=== PATIENT | male | born 1980 | race Caucasian/White ===

== ENCOUNTER 2023-05-12 08:09 | Emergency (ER) | payer SELFPAY ==
[~2023-05-12] VITALS: Ht 172.7 cm; Wt 87.0 kg
[2023-05-12 08:12] VITALS: TEMP 98; O2SAT 100
[2023-05-12 08:38] LABS: BASOPHILS % 1.1 % (0.0-2.0); EOSINOPHILS % 0.9 % (0.0-5.0); HEMATOCRIT. 45.3 % (42.0-52.0); HEMOGLOBIN. 15.5 g/dL (14.0-18.0); LYMPHOCYTES % 36.4 % (20.0-50.0); MEAN CORPUSCULAR HGB CONC 34.3 g/dL (31.0-37.0); MEAN CORPUSCULAR VOLUME 87.7 fL (80.0-94.0); MEAN PLATELET VOLUME 8.2 fl (7.4-10.4); MONOCYTES % 4.8 % (2.0-8.0); NEUTROPHILS % 56.8 % (40.0-76.0); PLATELET 308 x1000/uL (130-400); RED BLOOD CELL COUNT 5.17 mill/uL (4.7-6.1); WHITE BLOOD COUNT 5.2 x1000/uL (4.5-11.0)
[2023-05-12 09:01] LABS: D-DIMER 0.23 mg/L FEU (<0.50); PROTHROMBIN TIME 11.1 sec (9.6-11.0)
[2023-05-12 09:56] LABS: ALANINE AMINOTRANSFERASE 49 IU/L (10-49); ALBUMIN 4.6 g/dL (3.2-4.8); ASPARTATE AMINOTRANSFERASE 44 IU/L (<34); BILIRUBIN TOTAL 0.9 mg/dL (0.1-1.0); CALCIUM 8.8 mg/dL (8.7-10.4); CARBON DIOXIDE 22 mEq/L (21-32); CHLORIDE 106 mEq/L (98-107); CREATININE 0.9 mg/dL (0.6-1.3); ETHANOL BLOOD 105 mg/dL (<10); GLUCOSE 108 mg/dL (70-105); POTASSIUM 3.7 mEq/L (3.5-5.1); PROTEIN TOTAL 8.7 g/dL (6.0-8.3); SODIUM 140 mEq/L (136-145); TROPONIN I HIGH SENSITIVITY 45 ng/L (3.0-53); UREA NITROGEN BLOOD 16 mg/dL (9-23)
[2023-05-12 11:27] LABS: TROPONIN I HIGH SENSITIVITY 45 ng/L (3.0-53)
[2023-05-12] MEDS ORDERED: ONDA4TAB11 PO (12:48)
[2023-05-12] MEDS: KETOROLAC 30MG/ML VIAL IV ONE (13:05)
[2023-05-12 13:07] VITALS: BP 141/87; PULSE 88; RESP 15
== END 2023-05-12 13:09 | disposition home or self-care (01) ==
LOC: ER 08:09
DX: R11.2 Nausea with vomiting, unspecified (principal); R07.9 Chest pain, unspecified
CPT/HCPCS: 80053; 80320; 83880; 83690; 85025; 85379; 85610; 84484; 36415; 71045; 93005; 96374; 99285; J1885; Z7610 ×3; G0480

== ENCOUNTER 2024-04-02 09:35 | Emergency (ER) | payer MEDICAID, OTHER ==
[~2024-04-02] VITALS: Ht 152.4 cm; Wt 81.6 kg
[~2024-04-02 09:35] MED LIST: ONDA-239 PO
[2024-04-02 09:41] VITALS: O2SAT 98
[2024-04-02 10:29] LABS: BASOPHILS % 1.3 % (0.0-2.0); EOSINOPHILS % 1.5 % (0.0-5.0); HEMATOCRIT. 48.9 % (42.0-52.0); LYMPHOCYTES % 41.5 % (20.0-50.0); MEAN CORPUSCULAR HEMOGLOBIN 30.7 pg (28.0-32.0); MEAN CORPUSCULAR HGB CONC 34.8 g/dL (31.0-37.0); MEAN CORPUSCULAR VOLUME 88.1 fL (80.0-94.0); MEAN PLATELET VOLUME 9.1 fl (7.4-10.4); MONOCYTES % 5.8 % (2.0-8.0); NEUTROPHILS % 49.9 % (40.0-76.0); PLATELET 273 x1000/uL (130-400); RED BLOOD CELL COUNT 5.55 mill/uL (4.7-6.1); RED CELL DISTRIBUTION WIDTH 13.6 % (11.6-14.6); WHITE BLOOD COUNT 5.3 x1000/uL (4.5-11.0)
[2024-04-02 10:48] LABS: CHLORIDE 101 mEq/L (98-107); POTASSIUM 3.7 mEq/L (3.5-5.1); SODIUM 133 mEq/L (136-145)
[2024-04-02 10:49] LABS: CARBON DIOXIDE 19 mEq/L (21-32)
[2024-04-02 10:50] LABS: CALCIUM 8.8 mg/dL (8.7-10.4)
[2024-04-02 10:54] LABS: CREATININE 0.8 mg/dL (0.6-1.3); GLUCOSE 96 mg/dL (70-105)
[2024-04-02 10:55] LABS: UREA NITROGEN BLOOD 16 mg/dL (9-23)
[2024-04-02] MEDS: KETOROLAC 30MG/ML VIAL IM STA (12:41)
[2024-04-02] MEDS: ONDANSETRON HCL 4MG/2ML INJ IM STA (12:41)
[2024-04-02] MEDS: FOLIC ACID 1 MG, THIAMINE HCL 100 MG, MVI, ADULT NO.1 10 ML in DEXTROSE 5% WATER 1,000 ML IV ONE (12:42)
[2024-04-02 13:43] LABS: ETHANOL BLOOD 116 mg/dL (<10)
[2024-04-02 14:00] LABS: HEPATITIS B SURFACE ANTIGEN NEGATIVE (Negative)
[2024-04-02 14:02] LABS: TROPONIN I HIGH SENSITIVITY 57 ng/L (3.0-53)
[2024-04-02 14:20] LABS: HEPATITIS A AB IGM NEGATIVE (Negative)
[2024-04-02 14:21] LABS: HEPATITIS B CORE AB IGM NEGATIVE (Negative); HEPATITIS C AB NON REACTIVE (Neg) (Negative)
[2024-04-02 14:30] LABS: ALANINE AMINOTRANSFERASE 115 IU/L (10-49); ALBUMIN 3.8 g/dL (3.2-4.8); ASPARTATE AMINOTRANSFERASE 74 IU/L (<34); BILIRUBIN DIRECT 0.2 mg/dL (<=3.0); BILIRUBIN TOTAL 1.3 mg/dL (0.1-1.0); PROTEIN TOTAL 7.7 g/dL (6.0-8.3)
[2024-04-02 16:05] LABS: CLARITY URINE CLEAR (CLEAR); COLOR URINE YELLOW (YELLOW); GLUCOSE URINE NEGATIVE (NEGATIVE); KETONES URINE NEGATIVE (NEGATIVE); LEUKOCYTE ESTERASE URINE NEGATIVE (NEGATIVE); NITRITE URINE NEGATIVE (NEGATIVE); OCCULT BLOOD URINE NEGATIVE (NEGATIVE); PROTEIN URINE NEGATIVE (NEGATIVE); UROBILINOGEN URINE 0.2 E.U./dL (0.2-1.0)
[2024-04-02 16:10] LABS: TROPONIN I HIGH SENSITIVITY 54 ng/L (3.0-53)
[2024-04-02 16:20] LABS: *AMPHETAMINES SCREEN URINE NEGATIVE (NEGATIVE); *BARBITURATES SCREEN URINE NEGATIVE (NEGATIVE); *BENZODIAZEPINES SCREEN URINE NEGATIVE (NEGATIVE); *COCAINE SCREEN URINE NEGATIVE (NEGATIVE); CANNABINOID URINE SCREEN NEGATIVE (NEGATIVE); ECSTASY MDMA SCREEN URINE NEGATIVE (NEGATIVE); METHADONE URINE SCREEN NEGATIVE (NEGATIVE); OPIATES URINE SCREEN NEGATIVE (NEGATIVE); PHENCYCLIDINE URINE SCREEN NEGATIVE (NEGATIVE)
[2024-04-02] MEDS ORDERED: NAPR-681 MT (16:57)
[2024-04-02] MEDS ORDERED: ONDA4TAB50 PO (16:57)
[2024-04-02 17:13] VITALS: BP 144/99; PULSE 84; RESP 16; TEMP 37.1; O2SAT 98
== END 2024-04-02 17:14 | disposition home or self-care (01) ==
LOC: ER 09:35
DX: K76.0 Fatty (change of) liver, not elsewhere classified (principal); R07.89 Other chest pain; F10.10 Alcohol abuse, uncomplicated; Z79.899 Other long term (current) drug therapy; Y90.9 Presence of alcohol in blood, level not specified
CPT/HCPCS: 80076; 80305; 80048; 81003; 80320; 83690; 85025; 87340; 84484; 36415; 86705; 86709; 71045; 74176; 93005; 96365; 96372; 99285; J3490 ×2; J1885; J2405; J3411; J7070; G0480